=== PATIENT | female | born 1960 | race Caucasian/White ===

== ENCOUNTER 2019-05-04 14:44 | Emergency (ER) | payer OTHER, MEDICAID ==
[~2019-05-04] VITALS: Ht 137.2 cm; Wt 81.6 kg
[2019-05-04 14:54] VITALS: BP_SYST 170
--- NOTE | 2019-05-04 15:07 | NUR ---
Patient to ER bed 5 to gown for evaluation. Side rails up.
--- NOTE | 2019-05-04 15:10 | NUR ---
ER at bedside examining patient.
--- NOTE | 2019-05-04 15:18 | NUR ---
pt states that she does not know where she is here. States that nothing is wrong w/ her and tried to elope. Security was called and the pt is back in room 5.
--- NOTE | 2019-05-04 15:25 | NUR ---
Urine sample obtained and semt to lab
[2019-05-04 15:40] LABS: BASOPHILS # (AUTO) 0.1 K/uL (0.0-0.2); BASOPHILS % (AUTO) 0.7 % (0.0-2.0); EOSINOPHILS # (AUTO) 0.3 K/uL (0.0-0.4); EOSINOPHILS % (AUTO) 4.3 % (0.0-4.0); HEMATOCRIT 35.5 % (36-48); HEMOGLOBIN 11.9 g/dL (12.0-16.0); LYMPHOCYTES # (AUTO) 1.7 K/uL (1.0-5.5); LYMPHOCYTES % (AUTO) 22.6 % (20.5-51.5); MEAN CORPUSCULAR HEMOGLOBIN 33 pg (27-31); MEAN CORPUSCULAR HGB CONC 34 % (32-36); MEAN CORPUSCULAR VOLUME 98 fL (79.0-98.0); MONOCYTES # (AUTO) 0.4 K/uL (0.0-1.0); MONOCYTES % (AUTO) 5.2 % (1.7-9.3); NEUTROPHILS % (AUTO) 67.2 % (40.0-70.0); PLATELET COUNT (AUTO) 184 K/uL (130-430); RED BLOOD CELL COUNT(AUTO) 3.62 MIL/uL (4.2-6.2); RED CELL DISTRIBUTION WIDTH 13.2 % (9.0-15.0); WHITE BLOOD COUNT (AUTO) 7.5 K/uL (4.8-10.8)
[2019-05-04 15:58] LABS: BILIRUBIN,URINE NEGATIVE (NEGATIVE); COLOR,URINE YELLOW (YELLOW); GLUCOSE,URINE TRACE (NEGATIVE); KETONES,URINE NEGATIVE (NEGATIVE); LEUKOCYTE ESTERASE ,URINE 1+ (NEGATIVE); NITRITE, URINE POSITIVE (NEGATIVE); PH,URINE 5.5 (5.0-8.0); PROTEIN URINE 1+ (NEGATIVE); UROBILINOGEN,URINE 0.2 (0.2-1.0)
[2019-05-04 15:58] LABS: ANION GAP 6 (5-15); CALCIUM 8.3 mg/dL (8.4-11.0); CHLORIDE 106 mmol/L (98-107); CREATININE 1.92 mg/dL (0.55-1.30); GLUCOSE 258 mg/dL (70-99); POTASSIUM 4.3 mmol/L (3.5-5.1); SODIUM SERUM 138 mmol/L (136-145); UREA NITROGEN, BLOOD 45 mg/dL (8-21)
[2019-05-04 15:59] LABS: GFR AFRICAN AMERICAN 34 mL/min (>90)
[2019-05-04 16:03] LABS: BLOOD, URINE TRACE (NEGATIVE); CLARITY/URINE CLOUDY (CLEAR)
[2019-05-04 16:04] LABS: ALANINE AMINOTRANSFERASE 19 U/L (12-78); ALBUMIN 3.5 g/dL (3.4-4.8); ASPARTATE AMINOTRANSFERASE 18 U/L (10-37); TOTAL BILIRUBIN 0.2 mg/dL (0.0-1.0)
[2019-05-04 16:07] LABS: ALCOHOL, BLOOD < 3 mg/dL (<10)
[2019-05-04 16:16] LABS: ACETAMINOPHEN < 1 ug/mL (1-30)
[2019-05-04 16:19] LABS: BACTERIA,URINE MANY /HPF (None Seen); MUCUS,URINE None Seen /LPF (None Seen); RBC,URINE NONE SEEN /HPF (0-3)
[2019-05-04 16:20] LABS: CHOLESTEROL 124 mg/dL (<200); HDL CHOLESTEROL 48 mg/dL (>55); LDL CHOLESTEROL 63 mg/dL (<100); TRIGLYCERIDES 96 mg/dL (30-150)
[2019-05-04 16:20] LABS: BARBITURATE, URINE NEGATIVE (NEG <=200); BENZODIAZEPINE, URINE NEGATIVE (NEG <=150); CANNABINOID, URINE NEGATIVE (NEG <=50); COCAINE, URINE NEGATIVE (NEG <=150); METHAMPHETAMINES SCREEN,URINE NEGATIVE (NEG <=500); OPIATE, URINE NEGATIVE (NEG <=100); PHENCYCLIDINE SCREEN,URINE NEGATIVE (NEG <=25); UR TRICYCLIC ANTIDEPRESSANTS NEGATIVE (NEG <=300); URINE AMPHETAMINE NEGATIVE (NEG <=500); URINE METHADONE NEGATIVE (NEG <=200); URINE OXYCODONE SCREEN NEGATIVE (NEG <=100); URINE PROPOXYPHENE SCREEN NEGATIVE (NEG <=300)
--- NOTE | 2019-05-04 17:37 | NUR ---
pt will be going to [facility] bed 54. Accepting DrAddy is Obed. Report given to Mic
[2019-05-04 18:15] VITALS: BP_SYST 170
--- NOTE | 2019-05-04 18:16 | NUR ---
Note undone in EDM - 05/04/19 at 1819 by CAS Patient given written and verbal discharge instructions and verbalizes understanding. ER discussed with patient the results and treatment provided. Patient in stable condition. ID arm band removed. Rx of Macrobid given. Patient educated on pain management and to follow up with PMD. Pain Scale 0/10. Opportunity for questions provided and answered. Medication side effect fact sheet provided.
--- NOTE | 2019-05-04 18:19 | NUR ---
Patient to be transferred to [facility]. Is being transferred due to higher level of care. Receiving facility has accepting physician and available space. ER physician has signed transfer form. Patient or responsible republican has agreed to transfer and signed form. Patient belongings inventoried and will be sent with patient. Copy of nursing notes, lab reports, EKG, Physicians Orders and X-rays to be sent with patient. Report called to Mic CURIEL at receiving facility. Receiving physician is Dr. Clay. [facility] service has been called for transfer.
== END 2019-05-04 18:19 ==
LOC: SED 14:44
DX: N39.0 Urinary tract infection, site not specified (principal); Z04.6 Encounter for general psychiatric examination, requested by authority; E11.9 Type 2 diabetes mellitus without complications; R03.0 Elevated blood-pressure reading, without diagnosis of hypertension; Z98.84 Bariatric surgery status
CPT/HCPCS: 36415; 80053; 80061; 80307; 81000; 82962; 83036; 85025; 87086; 87186; 99285; G0480; G0481; G0482